=== PATIENT | female | born 1995 | race Two or more races ===

== ENCOUNTER 2016-12-01 22:24 | Emergency (ER) | payer SELFPAY ==
[~2016-12-01] VITALS: Ht 154.9 cm; Wt 86.2 kg
[2016-12-01 22:31] VITALS: BP 142/83
== END 2016-12-01 23:00 | disposition left against medical advice (07) ==
LOC: ER 22:30
DX: T78.40XA Allergy, unspecified, initial encounter (principal); Z53.21 Procedure and treatment not carried out due to patient leaving prior to being seen by health care provider